=== PATIENT | male | born 1955 | race African-American/Black ===

== ENCOUNTER 2016-05-08 21:47 | Emergency (ER) | payer OTHER ==
[~2016-05-08] VITALS: Ht 182.9 cm; Wt 95.3 kg
[2016-05-08 21:47] VITALS: BP 132/82
[2016-05-08 22:05] VITALS: BP 132/82
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
== END 2016-05-08 22:05 ==
LOC: EDBD 21:47 → EMR 21:53
DX: Z02.89 Encounter for other administrative examinations (principal)
CPT/HCPCS: 99283